=== PATIENT | male | born 1985 | race American Indian/Alaskan Native ===

== ENCOUNTER 2018-07-17 04:08 | Emergency (ER) | payer OTHER ==
--- NOTE | 2018-07-17 05:06 | XRay Report ---
FINAL REPORT EXAM: XR CHEST ROUTINE 2V HISTORY: chest pain TECHNIQUE: PA and lateral chest radiographs PRIORS: None. FINDINGS: No mediastinal shift. Cardiac silhouette is not enlarged. No pneumothorax, effusion, or focal pulmon alek opacity. No acute skeletal finding. IMPRESSION: No focal pulmonary opacity.
[2018-07-17 06:49] VITALS: BP 102/71
--- NOTE | 2018-07-17 06:49 | Emergency Department Report ---
ED General Adult HPI - General Chief complaint: Chest Pain Stated complaint: CHEST PAIN Source: patient Mode of arrival: Ambulatory Limitations: No Limitations - History of Present Illness Initial comments: 33-year-old -[place] male presents to the emergency room for mid chest pain to both sides of chest for 2 days. Patient reports that he vomited 2 days ago he denies any fever or chill reports pain is worse with deep breath reports pain with cough. He reports he is taking Mucinex last dose was yesterday at 7 PM and ibuprofen yesterday at 10 PM. Patient denies any past medical history currently takes no medications on a daily basis and has no known drug allergies. -: days(s) (2) Location: chest Radiation: non-radiation Severity scale (0 -10): 10 Quality: sharp Consistency: intermittent Worsens with: movement Associated Symptoms: cough, nausea/vomiting (2 days ago) - Related Data Previous Rx's Medication Instructions Recorded Last Taken Type Ibuprofen [Motrin 800 MG tab] 800 mg PO Q8HR PRN #15 tablet 07/17/18 Unknown Rx guaiFENesin [Robitussin] 200 mg PO Q6HR #20 tablet 07/17/18 Unknown Rx Allergies Allergy/AdvReac Type Severity Reaction Status Date / Time No Known Allergies Allergy Unverified 07/17/18 04:11 ED Review of Systems ROS: Stated complaint: CHEST PAIN Other details as noted in HPI Comment: All other systems reviewed and negative Respiratory: cough Cardiovascular: chest pain ED Past Medical Hx - Past Medical History Previous Medical History?: No - Surgical History Past Surgical History?: No - Social History Smoking Status: Never Smoker Substance Use Type: Alcohol - Medications Home Medications: Home Medications Medication Instructions Recorded Confirmed Last Taken Type Ibuprofen [Motrin 800 MG tab] 800 mg PO Q8HR PRN #15 tablet 07/17/18 Unknown Rx guaiFENesin [Robitussin] 200 mg PO Q6HR #20 tablet 07/17/18 Unknown Rx ED Physical Exam - General Limitations: No Limitations General appearance: alert, in no apparent distress - Head Head exam: Present: atraumatic, normocephalic - Eye Eye exam: Present: EOMI - ENT ENT exam: Present: mucous membranes moist - Neck Neck exam: Present: normal inspection - Respiratory Respiratory exam: Present: normal lung sounds bilaterally, chest wall tenderness. Absent: respiratory distress - Cardiovascular Cardiovascular Exam: Present: regular rate, normal rhythm. Absent: systolic murmur, diastolic murmur, rubs, gallop - GI/Abdominal GI/Abdominal exam: Present: soft, normal bowel sounds - Neurological Exam Neurological exam: Present: alert, oriented X3 - Psychiatric Psychiatric exam: Present: normal affect, normal mood - Skin Skin exam: Present: warm, dry, intact, normal color. Absent: rash ED Medical Decision Making - Radiology Data Radiology results: report reviewed Patient: YOHANA ESCALANTE MR#: [id number] : 1985 Acct:[id number] Age/Sex: 33 / M ADM Date: 07/17/18 Loc: ED Attending Dr: Ordering Physician: MIHIR KNOX Date of Service: 07/17/18 Procedure(s): XR chest routine 2V Accession Number(s): [id number] cc: MIHIR KNOX Fluoro Time In Minutes: FINAL REPORT EXAM: XR CHEST ROUTINE 2V HISTORY: chest pain TECHNIQUE: PA and lateral chest radiographs PRIORS: None. FINDINGS: No mediastinal shift. Cardiac silhouette is not enlarged. No pneumothorax, effusion, or focal pulmonary opacity. No acute skeletal finding. IMPRESSION: No focal pulmonary opacity. Transcribed By: MB Dictated By: JAVY STARR MD Electronically Authenticated By: JAVY STARR MD Signed Date/Time: 07/17/18 0506 DD/ 050 TD/TT: 07/17/18 0505 - Medical Decision Making Patient has been evaluated by this provider in fast track. Chest x-ray shows no pulmonary abnormalities EKG normal Troponin 1 last then 0.01 Chest wall tenderness Patient will be given ibuprofen for pain management and to follow-up with his primary care provider. Patient can take [id number] Robitussin for cough management. Patient state increase his water intake. Critical care attestation.: If time is entered above; I have spent that time in minutes in the direct care of this critically ill patient, excluding procedure time. ED Disposition Clinical Impression: Cough, Chest wall tenderness Disposition: DC-01 TO HOME OR SELFCARE Is pt being admited?: No Does the pt Need Aspirin: No Condition: Stable Instructions: Chest Pain (ED), Costochondritis (ED) Additional Instructions: Please take pain medication and cough medication as prescribed. Please follow up with her primary care provider I have listed one below for your convenience. Prescriptions: guaiFENesin [Robitussin] 200 mg PO Q6HR #20 tablet Ibuprofen [Motrin 800 MG tab] 800 mg PO Q8HR PRN #15 tablet PRN Reason: Pain , Severe (7-10) Referrals: DIOMEDES MALDONADO [Primary Care Provider] - 3-5 Days Forms: Work/School Release Form(ED)
== END 2018-07-17 07:11 | disposition home or self-care (01) ==
LOC: ED 04:08
DX: R07.89 Other chest pain (principal); R11.2 Nausea with vomiting, unspecified
CPT/HCPCS: 36415; 71046; 84484; 93005; 93010; 99283